=== PATIENT | male | born 1955 | race Caucasian/White ===

== ENCOUNTER 2019-05-20 20:49 | Emergency (ER) | payer SELFPAY ==
[~2019-05-20] VITALS: Ht 188 cm; Wt 112.5 kg
[2019-05-20 21:02] VITALS: Ht 188 cm; Wt 112.5 kg
[2019-05-20 23:53] VITALS: BP 143/83
== END 2019-05-20 23:53 | disposition home or self-care (01) ==
LOC: ED 20:49
DX: L89.899 Pressure ulcer of other site, unspecified stage (principal); F20.9 Schizophrenia, unspecified
CPT/HCPCS: Q0092